=== PATIENT | female | born 1970 | race Caucasian/White ===

== ENCOUNTER 2017-02-03 17:25 | Emergency (ER) | payer OTHER ==
[~2017-02-03] VITALS: Ht 157.5 cm; Wt 81.0 kg
[~2017-02-03 17:25] MED LIST: PHENERGAN25 MG/ML OR; PRILOSEC20 MG OR
[2017-02-03 19:05] VITALS: BP 149/74
== END 2017-02-03 19:05 | disposition home or self-care (01) | DRG 914 ==
LOC: ED 17:25
DX: S09.90XA Unspecified injury of head, initial encounter (principal); V49.40XA Driver injured in collision with unspecified motor vehicles in traffic accident, initial encounter